=== PATIENT | female | born 1995 | race Caucasian/White ===

== ENCOUNTER 2022-01-30 12:05 | Day surgery (SDC) | payer OTHER, SELFPAY ==
--- NOTE | 2022-01-29 12:06 | P.CONAN_ITS ---
HPI - Anesthesia Eval Consult details Narrative: 26yo F for Upper Endoscopy and Colonoscopy PMFSH Past Medical History Medical History (Updated 01/29/22 @ 10:33 by Pamela Baldwin RN) HSV-2 infection Strabismus Surgical History Surgical History (Updated 01/30/22 @ 12:38 by Shannon Oconnor RN) [place] teeth extracted Social History Social History Patient Tobacco Use Status: Never used Tobacco Are you DNR?: No Advance Directives: No Advance Directives Information Provided: Yes Nutrition Risks: No Nutritional Risk Patient : No Meds Allergies Allergy/AdvReac Type Severity Reaction Status Date / Time No Known Allergies Allergy Verified 01/29/22 10:33 Home Medications Medication Instructions Recorded Confirmed Last Taken Type valacyclovir 500 mg tablet 1 tab PO DAILY 01/29/22 01/30/22 Unknown History Exam Exam Date and Time: January 29, 2022 1206 Assessment and Plan Assessment Anesthesia Assessment: Chart Reviewed
[2022-01-30 09:07] VITALS: BMI 22.6
[2022-01-30 12:31] LABS: UPreg QC Valid YES; Urine Pregnancy NEGATIVE (NEGATIVE)
[2022-01-30 12:33] VITALS: BP 124/79; PULSE 74; RESP 17; TEMP 36.3; O2SAT 97
[2022-01-30] MEDS: Lactated Ringers 1,000 ML 100 ML IVCONT (12:50)
--- NOTE | 2022-01-30 13:31 | MHC.SHP ---
Pre-Procedural Eval Section A Date of Service: 01/30/22 The patient is an INPATIENT: No Changes since office visit: No Cold of Flu in the past 2 weeks, No New Medical Problems, No Changes in Medication and No Patient answered all questions The History & Physical has been completed within 30 days and I have reviewed it.: Yes Section B Chief Complaint: diarrhea,abd pain Allergies: Allergies Allergy/AdvReac Type Severity Reaction Status Date / Time No Known Allergies Allergy Verified 01/29/22 10:33 Plan I have reviewed the history and physical and performed a pertinent physical examination on my patient. No changes have occurred unless specified.
--- NOTE | 2022-01-30 14:09 | PM.OP ---
Brief Operative Note Date of Service: 01/30/22 Pre-op diagnosis: abd pain,diarrhea Post-op diagnosis: same Procedure: egd,colon Surgeon: Otilio Peterson Anesthesia: MAC Was an Motel Front Desk Clerk used for this Procedure?: No Estimated blood loss (mL): 5 Pathology: other (see req) Condition: stable Disposition: PACU
[2022-01-30 14:12] VITALS: BP 97/76; PULSE 77; RESP 20; TEMP 36.4; O2SAT 100
[2022-01-30 14:27] VITALS: BP 131/92; PULSE 61; RESP 18; O2SAT 100
[2022-01-30 14:42] VITALS: BP 118/82; PULSE 60; RESP 18; TEMP 36.9; O2SAT 100
--- NOTE | 2022-01-30 16:58 | OP_ITS ---
SURGEON: Otilio Peterson MD INDICATIONS: Abdominal pain and diarrhea. PREOPERATIVE DIAGNOSIS: POSTOPERATIVE DIAGNOSIS: PROCEDURE PERFORMED: Upper endoscopy with biopsy, colonoscopy to the terminal ileum with biopsy. ESTIMATED BLOOD LOSS: COMPLICATIONS: ANESTHESIA: ASSISTANTS: SPECIMENS: MEDICATIONS: Monitored anesthesia care. DESCRIPTION OF PROCEDURE: History and physical were performed. The risks and benefits of the procedure were explained to the patient. Informed consent was obtained. The patient was placed in the left lateral decubitus position. The Olympus video gastroscope was introduced into the esophagus, stomach, and duodenum. Examination was performed and the scope was removed. She was repositioned for colonoscopy. A digital rectal exam was performed and was found to be normal. The Olympus pediatric video colonoscope was introduced into the rectum and advanced to the cecum without difficulty. The cecum was identified by transillumination, palpation, and identification of ileocecal valve. Examination was performed and the scope was removed. She tolerated both procedures well and was returned to recovery area in stable condition. FINDINGS: UPPER ENDOSCOPY: Esophagus: The esophagus was normal. Biopsies were obtained from the EG junction. Stomach: The stomach showed no evidence of masses, ulcers, or polyps. Antral biopsies were obtained to evaluate for H pylori. Duodenum: The bulb and second portion were normal. The 2nd portion biopsies were obtained to evaluate for malabsorption. COLONOSCOPY: The terminal ileum was normal. This was biopsied. The visualized colonic mucosa was within normal limits. There was some liquid stool coating the mucosa in the right colon. This was washed and suctioned. No evidence of colitis was identified endoscopically. Random sigmoid biopsies were obtained because of the patient's history of diarrhea. Retroflexed examination showed some hypertrophic anal papillae. IMPRESSION: 1. Normal upper endoscopy. 2. Normal colonoscopy. RECOMMENDATION: Follow up the biopsy results. Screening colonoscopy at age 46 then every 10 years. MD GREG Ortiz/MARKY / [id number] MTDMichael
== END 2022-01-30 15:15 | disposition home or self-care (01) ==
PROVIDERS: Nurse Practitioner; Visit Provider Internal Medicine Gastroenterology
PROC: (CPT 45380; principal; 2022-01-30 13:00)
DX: R10.84 Generalized abdominal pain (principal); R19.7 Diarrhea, unspecified; R14.0 Abdominal distension (gaseous); K62.89 Other specified diseases of anus and rectum; B00.9 Herpesviral infection, unspecified; Z87.891 Personal history of nicotine dependence; Z79.899 Other long term (current) drug therapy
CPT/HCPCS: 45380; 43239; 81025; 88305; 88342

== ENCOUNTER 2023-12-01 09:17 | Outpatient (AMB) | payer OTHER, SELFPAY ==
--- NOTE | 2023-12-01 09:20 | A.OFFPC_ITS ---
Vital Signs 12/01/23 09:23 Height 5 ft 7 in Weight 155 lb 4 oz BMI 24.3 BP 120/70 Blood Pressure Location Lt brachial Position Sitting Pulse 79 Pulse Source Pulse Oximeter Pulse Oximetry (%) 99 Oxygen Delivery Method Room Air Intake Visit Reasons: establish care-High BP during OB visit Intake Note: Patient is a new patient here to establish care for physical. Transferring care from [facility]. Medical records have been requested and have received. Forensic Document Examiner Required: No Sales Representative Education Courses: Not Required per policy Accompanied by: Self / Same As Patient Allergies No Known Allergies Allergy (Verified 12/01/23 10:04) Medication List - Last Reconciled 12/01/23 by Mariano Pierre MD adapalene 0.3% 1 appl topical BEDTIME valacyclovir 500 mg PO DAILY Tobacco use date assessed: 12/01/23 Dental Screening Dental Screen Date: 12/01/23 Did you have a dental visit in the last 12 months?: Yes Did you have a dental problem in the last 6 months where you did not have access to dental care?: No Was dental information given to patient?: Patient has dentist HPI establish care-High BP during OB visit HPI Details 28-year-old female presents to the offic e to establish her care here. She is transferring her care from [facility] [address]. Patient experiences tremor and twitching. The tremors are mostly in the hands and at night. She usually is on the phone at night and has been noticing the phone shaking. Sometimes she has twitching sensation near the chin. Symptoms disappear during the day and when she is awake. No change in her handwriting. Patient is able to do all activities of daily living. For exercise, she rides horses and is able to do so without any changes. No urinary incontinence. Patient gives history of chronic herpes simplex infection with intermittent outbreak. She takes valacyclovir for suppression. 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 1. Little interest or pleasure in doing things: not at all 2. Feeling down, depressed, or hopeless: not at all 3. Trouble falling or staying asleep, or sleeping too much: not at all 4. Feeling tired or having little energy: not at all 5. Poor appetite or overeating: not at all 6. Feeling bad about yourself - or that you are a failure or have let yourself or your family down: not at all 7. Trouble concentrating on things, such as reading the newspaper or watching television: not at all 8. Moving or speaking so slowly that other people could have noticed. Or the opposite - being so fidgety or restless that you have been moving around a lot more than usual: not at all 9. Thoughts that you would be better off or of hurting yourself in some way: not at all Total score: 0 Depression Screening Interpretation: Negative Depression Screening Done: Yes Source: Developed by Drs. Jagdish Ferreira, Viviana Hutchison, Blayne Ybarra and colleagues, with an educational lay from [employer]. Thrive Questionnaire Date Thrive assessed: 12/01/23 I am a: Patient What is your living situation today?: I have a steady place to live Within the past 12 months, did the food you bought not last and you didn't have the money to get more?: Never true Within the past 12 months, did you worry whether your food would run out before you got money to buy more?: Never true Do you have trouble paying for medicines?: No Do you have trouble getting transportation to medical appointments?: No Do you have trouble paying your heating and electricity bill?: No Do you have trouble taking care of your child, family member or friend?: No Do you have trouble with day-to-day activities such as bathing, preparing meals, shopping, managing finances, etc.?: No Are you currently unemployed and looking for a job?: No Are you interested in more education?: No Currently or been in a relationship where the following occur: no concerns reported THRIVE Score: 0 AUDIT C Alcohol Use Questionnaire (AUDIT-C) 1. How often do you have a drink containing alcohol?: Monthly or less 2. How many drinks containing alcohol do you have on a typical day when you are drinking?: 1 or 2 Total Score: 1 THOR-7 AMB Questionnaire THOR-7 Date THOR - 7 assessed: 12/01/23 Feeling nervous, anxious, or on edge: 0 = Not at all Not being able to stop or control worryin = Not at all Worrying too much about different things: 0 = Not at all Trouble relaxin = Not at all Being so restless that it is hard to sit still: 0 = Not at all Becoming easily annoyed or irritable: 0 = Not at all Feeling afraid as if something awful might happen: 0 = Not at all Total THOR-7 score (0-4 normal; 5-9 mild; 10-14 moderate; 15-21 severe): 0 Source: Developed by Drs. Jagdish Ferreira, Viviana Hutchison, Blayne Ybarra and colleagues, with an educational lay from [employer]. Physical exam (Primary Care) Vital Signs: Last Vital Signs Pulse 79 12/01/23 09:23 BP 120/70 12/01/23 09:23 Pulse Ox 99 12/01/23 09:23 Oxygen Delivery Method Room Air 12/01/23 09:23 BMI result Body Mass Index 24.3 Tobacco/Smoking Status: Tobacco use Status Tobacco use date assessed 12/01/23 12/01/23 09:26 Patient Tobacco Use Status Never used Tobacco 12/01/23 09:30 Tobacco use type Smokeless Tobacco 12/01/23 09:30 e-Cigarette/Vaping Use Currently Using 12/01/23 09:32 PHQ-9: PHQ-9 Score PHQ-9: Total score 0 12/01/23 09:26 Depression Screening Interpretation: Negative Thrive Assessment: Date of Thrive Assessment Date Thrive assessed 12/01/23 12/01/23 09:26 Currently or been in a relationship where the following occur: no concerns reported Const General: cooperative and healthy appearing Nutritional Appearance: well nourished Orientation/consciousness: patient oriented x3 Limitations: no limitations HENMT Head: Yes normal to inspection Eyes General: appearance normal, both eyes and all related structures Neck Neck: Yes normal visual inspection Chest Chest palpation & inspection: normal palpation of entire chest wall Resp Effort & Inspection: normal respiratory effort Neuro Other: Patient both arms were stretched out. Patient was asked to spread the fingers out. No tremor seen. General: patient oriented x3 Deep tendon reflexes (DTR's): Right triceps reflex intensity grade: 2+, Left triceps reflex intensity grade: 2+, Right patellar reflex intensity grade: 2+ and Left patellar reflex intensity grade: 2+ Assessment and Plan Assessment & Plan (1) Tremor: Code(s): R25.1 - Tremor, unspecified Plan: Most likely due to fatigue. Reassurance. Blood work including TSH has been requested. Will call with the results. Valtrex has been called in. Orders: Orders Basic Metabolic Panel Today G25.0 - Essential tremor Lipid Panel Today G25.0 - Essential tremor Liver Panel Today G25.0 - Essential tremor Thyroid Stimulating Hormone Today G25.0 - Essential tremor Complete Blood Count no Diff Today G25.0 - Essential tremor UA and rflx microscopic Today G25.0 - Essential tremor Medications: Changed From valacyclovir 1 tab PO DAILY To valacyclovir 500 mg PO DAILY 30 tabs 0RF Coding Level of Care Code New Pt Level 3 (67493) Diagnoses Tremor R25.1
[2023-12-01 09:23] VITALS: BP 120/70; PULSE 79; O2SAT 99; BMI 24.3
== END 2023-12-01 09:58 | disposition home or self-care (01) ==
PROVIDERS: PCP Internal Medicine; Visit Provider Internal Medicine
DX: R25.1 Tremor, unspecified (principal)
CPT/HCPCS: 99203